=== PATIENT | male | born 1980 ===

== ENCOUNTER 2018-04-30 21:16 | Emergency (ER) | payer OTHER ==
[2018-04-30 21:56] VITALS: BP 129/80; PULSE 75; RESP 16; TEMP 98.2; O2SAT 98
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
== END 2018-05-01 | disposition home or self-care (01) ==
LOC: H.ER 21:16
DX: S09.90XA Unspecified injury of head, initial encounter (principal); H72.2X1 Other marginal perforations of tympanic membrane, right ear; Y04.0XXA Assault by unarmed brawl or fight, initial encounter; Y92.410 Unspecified street and highway as the place of occurrence of the external cause; Z88.0 Allergy status to penicillin